=== PATIENT | male | born 1990 | race Caucasian/White ===

== ENCOUNTER 2017-07-16 21:51 | Emergency (ER) | payer SELFPAY ==
[2017-07-16 23:57] LABS: Urine Blood 3+ (NEG); Urine Glucose NEGATIVE (NEG); Urine Protein NEGATIVE (NEG); Urine Specific Gravity 1.015 (1.005-1.030)
--- NOTE | 2017-07-17 00:03 | EDPHYS ---
Physician Documentation [facility] Name: Daniel Dominguez Age: 26 yrs Sex: Male : 1990 Arrival Date: 07/16/2017 Time: 21:56 Bed 24 Private MD: ED Physician Kong Mcdaniels HPI: 07/16 23:59 This 26 yrs old Male presents to ER via Ambulatory with complaints of rn Possible Kidney Stone. 23:59 The patient complains of pain in the right low back. The pain radiates to the abdomen. rn Onset: The symptoms/episode began/occurred just prior to arrival. Modifying factors: The symptoms are alleviated by nothing. the symptoms are aggravated by nothing. Severity of pain: At its worst the pain was moderate in the emergency department the pain has resolved. The patient has experienced a previous episode. Reports known kidney stones, sudden onset of right flank, radiates to right testicle, pain now gone, assoc with nausea. No fever. No abd pain. . Historical: - Allergies: 22:23 No Known Allergies; fc - Home Meds: 22:23 None [Active]; fc - PMHx: 22:23 Kidney stones; fc - PSHx: 22:23 None; fc - Immunization history:: Last tetanus immunization: unknown. - Social history:: Smoking status: Patient/guardian denies using tobacco. - Ebola Screening: : Patient negative for fever greater than or equal to 101.5 degrees Fahrenheit, and additional compatible Ebola Virus Disease symptoms Patient denies exposure to infectious person Patient denies travel to an Ebola-affected area in the 21 days before illness onset. - Family history:: not pertinent. - Hospitalizations: : No recent hospitalization is reported. ROS: 23:59 Constitutional: Negative for fever, chills, and weight loss, Eyes: Negative for injury, rn pain, redness, and discharge, Neck: Negative for injury, pain, and swelling, Cardiovascular: Negative for chest pain, palpitations, and edema, Respiratory: Negative for shortness of breath, cough, wheezing, and pleuritic chest pain, Abdomen/GI: Negative for abdominal pain, diarrhea, and constipation, Back: Negative for injury MS/Extremity: Negative for injury and deformity, Skin: Negative for injury, rash, and discoloration, Neuro: Negative for headache, weakness, numbness, tingling, and seizure. Exam: 23:59 Constitutional: This is a well developed, well nourished patient who is awake, alert, rn and in no acute distress. Head/Face: Normocephalic, atraumatic. Abdomen/GI: Soft, non-tender, with normal bowel sounds. No distension or tympany. No guarding or rebound. No evidence of tenderness throughout. Back: No spinal tenderness. No costovertebral tenderness. Full range of motion. MS/ Extremity: Pulses equal, no cyanosis. Neurovascular intact. Full, normal range of motion. Equal circumference. Neuro: Awake and alert, GCS 15, oriented to person, place, time, and situation. Cranial nerves II-XII grossly intact. Motor strength 5/5 in all extremities. Sensory grossly intact. Cerebellar exam normal. Normal gait. Vital Signs: 22:23 BP 151 / 97; Pulse 79; Resp 18; Temp 99.5(O); Pulse Ox 98% on R/A; Weight 86.18 kg (R); fc Height 5 ft. 9 in. (175.26 cm) (R); Pain 4/10; 07/17 00:06 BP 140 / 92; Pulse 75; Resp 16; Pulse Ox 100% on R/A; lp1 07/16 22:23 Body Mass Index 28.06 (86.18 kg, 175.26 cm) fc MDM: 07/16 23:41 Patient medically screened. rn 23:59 Differential diagnosis: nephrolithiasis, UTI. Data reviewed: vital signs, nurses notes, churner test result(s), urinalysis, and as a result, I will discharge patient. Counseling: I had a detailed discussion with the patient and/or guardian regarding: the historical points, exam findings, and any diagnostic results supporting the discharge/admit diagnosis, lab results, the need for outpatient follow up, to return to the emergency department if symptoms worsen or persist or if there are any questions or concerns that arise at home. Special discussion: I discussed with the patient/guardian in detail that at this point there is no indication for admission to the hospital. It is understood, however, that if the symptoms persist or worsen the patient needs to return immediately for re-evaluation. ED course: Pt pain free, is concerned about cost of w/u and ct, patient with classic symptoms of stone as well as hematuria, odds are he will pass it, patient declines bloodwork and ct, prefers symptomatic treatment. Return precautions given and understood.. 07/16 23:50 Order name: Urine Dipstick--Ancillary (enter results) eb Administered Medications: No medications were administered Disposition: 07/17/17 00:02 Discharged to Home. Impression: Ureterolithiasis. - Condition is Stable. - Discharge Instructions: Kidney Stones. - Prescriptions for Zofran ODT 4 mg Oral tablet,disintegrating - place 1 tablet by TRANSLINGUAL route every 8 hours As needed; 20 tablet. Ibuprofen 800 mg Oral Tablet - take 1 tablet by ORAL route every 8 hours As needed take with food; 30 tablet. Flomax 0.4 mg Oral Capsule, Sust. Release 24 hr - take 1 capsule by ORAL route once daily 1/2 hour following the same meal each day; 5 capsule. - Medication Reconciliation Form, Thank You Letter, Antibiotic Education, Prescription Opioid Use form. - Follow up: Niels Daigle MD; When: As needed; Reason: Recheck today's complaints, Re-evaluation by your physician. - Problem is new. - Symptoms have improved. Signatures: Dispatcher [employer] EDMS Laury Alejandre RN RN fc Nieto, Roman, MD MD rn Pena, Laura, RN RN lp1 Corrections: (The following items were deleted from the chart) 07/17 00:13 00:02 07/17/2017 00:02 Discharged to Home. Impression: Ureterolithiasis. Condition is lp1 Stable. Forms are Medication Reconciliation Form, Thank You Letter, Antibiotic Education, Prescription Opioid Use. Follow up: Niels Daigle; When: As needed; Reason: Recheck today's complaints, Re-evaluation by your physician. Problem is new. Symptoms have improved. rn
--- NOTE | 2017-07-17 00:03 | ER ---
Nurse's Notes [facility] Name: Daniel Dominguez Age: 26 yrs Sex: Male : 1990 Arrival Date: 07/16/2017 Time: 21:56 Bed 24 Private MD: Diagnosis: Ureterolithiasis Presentation: 07/16 22:21 Presenting complaint: Patient states: that he has been having pain to his lower back fc and lower right abd area that comes and goes. States that something feels as if it is stopping his urine. Hx of kidney stones. Transition of care: patient was not received from another setting of care. Onset of symptoms was 2016. Risk Assessment: Do you want to hurt yourself or someone else? Patient reports no desire to harm self or others. Initial Sepsis Screen: Does the patient meet any 2 criteria? No. Patient's initial sepsis screen is negative. Does the patient have a suspected source of infection? No. Patient's initial sepsis screen is negative. Care prior to arrival: None. 22:21 Method Of Arrival: Ambulatory 22:21 Acuity: BRENNA 3 fc Triage Assessment: 22:25 General: Appears comfortable, slender, Behavior is calm, cooperative, appropriate for age. Pain: Complains of pain in low back area Pain radiates to right lower quadrant Pain currently is 4 out of 10 on a pain scale. Quality of pain is described as aching, throbbing, Pain began years ago. Is episodic. EENT: No deficits noted. Neuro: Level of Consciousness is awake, alert, obeys commands, Oriented to person, place, time, situation. Cardiovascular: No deficits noted. Respiratory: No deficits noted. GI: Abdomen is flat, Bowel sounds present X 4 quads. Reports lower abdominal pain. : Reports pain in right flank(s), lower quadrant(s) in lower back. Derm: Skin is pink, warm \T\ dry. Musculoskeletal: Circulation, motion, and sensation intact. Capillary refill < 3 seconds, Range of motion: intact in all extremities. Historical: - Allergies: 22:23 No Known Allergies; fc - Home Meds: 22:23 None [Active]; fc - PMHx: 22:23 Kidney stones; fc - PSHx: 22:23 None; fc - Immunization history:: Last tetanus immunization: unknown. - Social history:: Smoking status: Patient/guardian denies using tobacco. - Ebola Screening: : Patient negative for fever greater than or equal to 101.5 degrees Fahrenheit, and additional compatible Ebola Virus Disease symptoms Patient denies exposure to infectious person Patient denies travel to an Ebola-affected area in the 21 days before illness onset. - Family history:: not pertinent. - Hospitalizations: : No recent hospitalization is reported. Screenin:59 Abuse screen: Denies threats or abuse. Denies injuries from another. Nutritional lp1 screening: No deficits noted. Tuberculosis screening: No symptoms or risk factors identified. Fall Risk None identified. Assessment: 23:57 General: Appears in no apparent distress. Behavior is appropriate for age. Pain: lp1 Complains of pain in right lower quadrant Pain currently is 5 out of 10 on a pain scale. Quality of pain is described as sharp. Neuro: Level of Consciousness is awake, alert, obeys commands. Cardiovascular: Patient's skin is warm and dry. Respiratory: Respiratory effort is even, unlabored, Respiratory pattern is regular, symmetrical. GI: Abdomen is flat, Abd is soft and non tender X 4 quads. : Parent/caregiver report the patient having pain with urination difficulty voiding. EENT: No signs and/or symptoms were reported regarding the EENT system. Derm: Skin is pink, warm \T\ dry. Musculoskeletal: Circulation, motion, and sensation intact. Vital Signs: 22:23 BP 151 / 97; Pulse 79; Resp 18; Temp 99.5(O); Pulse Ox 98% on R/A; Weight 86.18 kg (R); fc Height 5 ft. 9 in. (175.26 cm) (R); Pain 4/10; 07/17 00:06 BP 140 / 92; Pulse 75; Resp 16; Pulse Ox 100% on R/A; lp1 07/16 22:23 Body Mass Index 28.06 (86.18 kg, 175.26 cm) ED Course: 07/16 21:56 Patient arrived in ED. al2 22:23 Triage completed. fc 22:25 Arm band placed on Patient placed in an exam room, on a stretcher. fc 23:41 Kong Mcdaniels MD is Attending Physician. rn 23:56 Aleah Hills RN is Primary Nurse. lp1 23:59 Patient has correct armband on for positive identification. Pulse ox on. NIBP on. lp1 07/17 00:02 Niels Daigle MD is Referral Physician. rn 00:06 No provider procedures requiring assistance completed. Patient did not have IV access lp1 during this emergency room visit. Administered Medications: No medications were administered Outcome: 00:02 Discharge ordered by MD. rn 00:13 Discharged to home ambulatory. lp1 00:13 Condition: good 00:13 Discharge instructions given to patient, Instructed on discharge instructions, follow up and referral plans. medication usage, Demonstrated understanding of instructions, follow-up care, medications, Prescriptions given X 3. 00:13 Patient left the ED. lp1 Signatures: Laury Alejandre RN RN Kong Mcdaniels MD MD rn Pena, Laura, RN RN lp1 Lindy Eastman Corrections: (The following items were deleted from the chart) 07/16 23:59 23:57 GI: Abdomen is flat, lp1 lp1 23:59 23:57 : Parent/caregiver report the patient having pain with urination difficulty lp1 voiding lp1
== END 2017-07-17 00:13 | disposition home or self-care (01) ==
LOC: ER 21:51
DX: N20.1 Calculus of ureter (principal); Z87.442 Personal history of urinary calculi
CPT/HCPCS: 81003; 99283